=== PATIENT | male | born 1985 | race Caucasian/White ===

== ENCOUNTER 2018-04-26 17:33 | Emergency (ER) | payer SELFPAY ==
[~2018-04-26] VITALS: Ht 182.9 cm; Wt 72.7 kg
[2018-04-26 17:38] VITALS: Ht 182.9 cm; Wt 72.7 kg
[2018-04-26] MEDS ORDERED: ROBAXIN-750750 MG PO (19:43)
[2018-04-26 20:05] VITALS: BP 121/70
== END 2018-04-26 20:07 | disposition home or self-care (01) ==
LOC: D.ER 17:33
DX: S83.92XA Sprain of unspecified site of left knee, initial encounter (principal); V43.62XA Car passenger injured in collision with other type car in traffic accident, initial encounter; Y93.89 Activity, other specified; Y92.410 Unspecified street and highway as the place of occurrence of the external cause; R10.9 Unspecified abdominal pain; F17.200 Nicotine dependence, unspecified, uncomplicated